=== PATIENT | male | born 1930 | race Caucasian/White ===

== ENCOUNTER → 2017-03-30 | Outpatient (CLI) | payer MEDICARE ==
--- NOTE | 2017-03-30 15:09 | PCVCIMAG ---
APPROVED REPORT Study performed: 03/30/2017 11:24:46 EXAM: Comprehensive 2D, Doppler, and color-flow Echocardiogram Patient Location: Echo lab Status: routine BSA: 1.95 HR: 73 bpmBP: 140/70 mmHg Rhythm: NSR Other Information Study Quality: Adequate Indications Aortic Valve Disease Murmur Hypertension/HDD 2D Dimensions LVEF(%): 75.12 (>50%) IVSd: 11.75 (7-11mm)LVOT Diam: 23.19 (18-24mm) LVDd: 37.71 mm PWd: 9.64 (7-11mm)Ascending Ao: 26.38 (22-36mm) LVDs: 21.41 (25-40mm) Left Atrium: 37.22 (27-40mm) Aortic Root: 25.23 mm LV Single Plane 4CH: 56.40 % LV Single Plane 2CH: 61.72 %Abreu's LVEF: 59.06 % Biplane EF: 60.5 % Volumes Left Atrial Volume (Systole) Single Plane 4CH: 52.25 mLSingle Plane 2CH: 55.75 mL Biplane LA Volume: 67.00 mLLA ESV Index: 34.00 mL/m2 Aortic Valve AoV Peak Blade.: 2.88 m/s AO Peak Gr.: 34.47 mmHgLVOT Max P.91 mmHg AO Mean Gr.: 20.06 mmHgLVOT Mean P.23 mmHg AO V2 Mean: 2.15 m/sLVOT Max V: 0.96 m/s AO V2 VTI: 68.16 cm LEWIS (VTI): 1.34 [id number] V1 VTI: 21.71 cm LEWIS Vmax: 1.41 cm2 Mitral Valve E/A Ratio: 0.6 MV Decel. Time: 217.38 ms MV E Max Blade.: 0.98 m/s MV A Blade.: 1.58 m/s MV PHT: 63.04 ms IVRT: 131.49 ms TDI E/Lateral E': 32.67E/Medial E': 19.60 Medial E' Blade.: 0.05 m/s Lateral E' Blade.: 0.03 m/s Pulmonary Valve PV Peak Blade.: 1.10 m/sPV Peak Gr.: 4.81 mmHg Pulmonary Vein P Vein S: 0.81 m/sP Vein A: 0.38 m/s P Vein D: 0.28 m/sP Vein A Dur.: 110.7 msec P Vein S/D Ratio: 2.89 Tricuspid Valve TR Peak Blade.: 2.45 m/s TR Peak Gr.: 24.09 mmHg TV Vmax: 0.59 m/sPA Pressure: 31.00 mmHg Left Ventricle The left ventricle is normal size. There is normal LV segmental wall motion. Mild concentric left ventricular hypertrophy. Left ventricular systolic function is normal. The left ventricular ejection fraction is within the normal range. LVEF is 60%. Grade I - abnormal relaxation pattern with indications for increased left atrial pressure. Right Ventricle The right ventricle is normal size. The right ventricular systolic function is normal. Atria Left atrium is mildly dilated. The right atrium size is normal. Aortic Valve Aortic valve is trileaflet. Aortic valve leaflets are moderately sclerotic with decreased opening. No aortic regurgitation is present. Moderate aortic stenosis. Highest mean aortic valve gradient is 20 Peak aortic valve gradient is 33 1.4 cm 2 Mitral Valve Posterior Mitral valve leaflet is moderately thickened. Normal motion of the anterior leaflet. Mild mitral annular calcification. Trace mitral regurgitation. No evidence of mitral valve stenosis. Tricuspid Valve The tricuspid valve is normal in structure. Mild tricuspid regurgitation with a PA pressure of 31mmHg.. Pulmonic Valve The pulmonary valve is normal in structure. There is no pulmonic valvular regurgitation. Great Vessels The aortic root is normal in size. The ascending aorta is normal in size. IVC is normal in size and collapses with >50% inspiration Pericardium There is no pericardial effusion. There is no pleural effusion. <Conclusion> Normal echocardiogram. The left ventricle is normal size. Mild concentric left ventricular hypertrophy. LVEF is 60%. Grade I - abnormal relaxation pattern with indications for increased left atrial pressure. The right ventricle is normal size. Left atrium is mildly dilated. Aortic valve is trileaflet. Aortic valve leaflets are moderately sclerotic with decreased opening. Moderate aortic stenosis. Highest mean aortic valve gradient is 20 Peak aortic valve gradient is 33 1.4 cm 2 Trace mitral regurgitation. There is no pericardial effusion.
== END | disposition home or self-care (01) ==
LOC: PCVCIMAG 10:55
PROVIDERS: ATTEND Internal Medicine Cardiovascular Disease
DX: I08.1 Rheumatic disorders of both mitral and tricuspid valves (principal); I10 Essential (primary) hypertension; E78.5 Hyperlipidemia, unspecified; Z90.79 Acquired absence of other genital organ(s); Z79.82 Long term (current) use of aspirin
CPT/HCPCS: 80061; 93005; 93306; G0463; 93325; 93351

== ENCOUNTER → 2017-12-28 | Outpatient (CLI) | payer MEDICARE | END | disposition home or self-care (01) | LOC: PCVCCLINIC 11:22 | DX: I10 Essential (primary) hypertension (principal); K21.9 Gastro-esophageal reflux disease without esophagitis; I35.0 Nonrheumatic aortic (valve) stenosis; Z87.11 Personal history of peptic ulcer disease; Z79.899 Other long term (current) drug therapy | CPT/HCPCS: 80061; 93005; G0463 ==

== ENCOUNTER → 2018-04-18 | Outpatient (CLI) | payer MEDICARE ==
--- NOTE | 2018-04-18 13:26 | PCVCIMAG ---
APPROVED REPORT Study performed: 04/18/2018 11:34:10 Exam: Stress Echocardiogram Indication: Aortic Valve Stenosis,dyspnea Patient Location: Echo lab Stress Nurse: Leeann Granado RN Room #: 2 Status: routine Ht: 5 ft 9 in HR: 88 bpm BP: 134/86 mmHg Rhythm: NSR Medical History Medical History: HTN,aortic stenosis Cardiac Risk Factors: HTN,age Pretest Chest Pain Characteristics: No chest pain Exercise History: Physically active Procedure The patient underwent an Exercise Stress Test using the Sara Protocol. Blood pressure, heart rate, and EKG were monitored. An Echocardiogram was performed by tractor technician in four stages in quad fashion. At peak stress, four selected images were obtained and placed side by side with resting images for comparison. Stress Test Details Stress Test: Exercise stress testing was performed using a Sara protocol. HR Resting HR: 88 bpmMax Heart Rate (APMHR): 134 bpm Max HR Achieved: 155 bpmTarget HR (85% APMHR): 113 bpm % of APMHR: 115 Recovery HR: 100 bpm HR response to stress: Normal HR response to stress BP Resting BP: 134/86 mmHg Max BP: 144/74 mmHg Recovery BP: 130/70 mmHg ECG Resting ECG: Sinus Rhythm Stress ECG: Sinus Rhythm ST Change: Non-ischemic Arrhythmia: Rare PVCs Recovery ECG: Sinus Rhythm Recovery ST Change: Non-ischemic Recovery Arrhythmia: None Clinical Reason for Termination: Maximal effort Stress Symptoms: none Exercise duration: 5 min 59 sec Highest Stage Achieved: Stage 2: 2.5 mph at 12% grade. Exercise capacity: 7 METs Overall Exercise Capacity for Age: Good Scale: Active Angina Score: None No complications. Stress ECG Conclusion The patient exercised according to the SARA protocol for 5:59 mins; achieving a work level of 7.0 METS. The resting heart rate of 88 bpm mariangel to a maximum heart rate of 155 bpm. This value represent 115% of the maximal, age-predicted heart rate. The resting blood pressure of 134/86 mmHg, mariangel to a maximum blood pressure of 168/80 mmHg. The exercise test was stopped due to fatigue. Pre-Stress Echo The resting Echocardiogram showed normal left ventricular contractility with an estimated Ejection Fraction of about 55-60%. Normal wall motion in all segments on baseline images. Post-Stress Echo The stress Echocardiogram showed normal left ventricular contractility with an estimated Ejection Fraction of about 65-70%. Normal augmentation of wall motion in all segments on post stress images. Clinical No clinical or ECG evidence for ischemia. Conclusion Clinical Response: Non-ischemic Exercise Capacity: Average Stress ECG Response: Non-ischemic Stress Echo Images: Non-ischemic No clinical, EKG or echocardiographic evidence for ischemia. No echocardiographic evidence for exercise induced ischemia. Normal stress echocardiogram with maximal exercise stress. Moderate aortic stenosis seen-minimal change from prior test. <Conclusion> No clinical, EKG or echocardiographic evidence for ischemia. No echocardiographic evidence for exercise induced ischemia. Normal stress echocardiogram with maximal exercise stress. Moderate aortic stenosis seen-minimal change from prior test.
== END | disposition home or self-care (01) ==
LOC: PCVCIMAG 12:47
PROVIDERS: ATTEND Internal Medicine Cardiovascular Disease
DX: I10 Essential (primary) hypertension (principal); R06.09 Other forms of dyspnea; I35.0 Nonrheumatic aortic (valve) stenosis
CPT/HCPCS: 93325; 93351

== ENCOUNTER → 2019-02-15 | Outpatient (CLI) | payer MEDICARE | END | disposition home or self-care (01) | LOC: PCVCCLINIC 11:00 | PROVIDERS: ATTEND Internal Medicine Cardiovascular Disease | DX: I35.0 Nonrheumatic aortic (valve) stenosis (principal); E78.00 Pure hypercholesterolemia, unspecified; R01.1 Cardiac murmur, unspecified; I10 Essential (primary) hypertension | CPT/HCPCS: 36415; 80061; 93005; G0463 ==